=== PATIENT | male | born 1990 | race Caucasian/White ===

== ENCOUNTER 2018-10-15 21:40 | Emergency (ER) | payer SELFPAY ==
--- NOTE | 2018-10-15 21:55 | EDM.PDOC ---
ED HPI GENERAL MEDICAL PROBLEM - General Chief Complaint: ENT Problem Stated Complaint: BLOODY NOSE Time Seen by Provider: 10/15/18 21:55 Source of Information: Reports: Patient - History of Present Illness INITIAL COMMENTS - FREE TEXT/NARRATIVE: HISTORY AND PHYSICAL: History of present illness: [Patient presents with epistaxis left there off and on since yesterday has been bleeding over the last hour we did try the nose clamp as well as ice on the back of neck for 30 minutes no resolution Eyes nasal balloon device without complication or complaint 4 mL for inflation-- leading resolved] Review of systems: As per history of present illness and below otherwise all systems reviewed and negative. Past medical history: As per history of present illness and as reviewed below otherwise noncontributory. Surgical history: As per history of present illness and as reviewed below otherwise noncontributory. Social history: No reported history of drug or alcohol abuse. Family history: As per history of present illness and as reviewed below otherwise noncontributory. Physical exam: HEENT: Atraumatic, normocephalic, pupils reactive, negative for conjunctival pallor or scleral icterus, mucous membranes moist, throat clear, neck supple, nontender, trachea midline. Lungs: Clear to auscultation, breath sounds equal bilaterally, chest nontender. Heart: S1S2, regular, negative for clicks, rubs, or JVD. Abdomen: Soft, nondistended, nontender. Negative for masses or hepatosplenomegaly. Negative for costovertebral tenderness. Pelvis: Stable nontender. Genitourinary: Deferred. Rectal: Deferred. Extremities: Atraumatic, negative for cords or calf pain. Neurovascular unremarkable. Neuro: Awake, alert, oriented. Cranial nerves II through XII unremarkable. Cerebellum unremarkable. Motor and sensory unremarkable throughout. Exam nonfocal. Diagnostics: [CBC ] Therapeutics: [Balloon device left there] Impression: [Epistaxis] Definitive disposition and diagnosis as appropriate pending reevaluation and review of above. - Related Data Allergies Allergy/AdvReac Type Severity Reaction Status Date / Time No Known Allergies Allergy Verified 10/15/18 22:10 Home Meds: Home Meds atorvaSTATin [Lipitor] 0 mg PO DAILY 10/15/18 [History] metFORMIN HCl [Metformin HCl] 1 tab PO BID 10/15/18 [History] ED ROS GENERAL - Review of Systems Review Of Systems: See Below ED EXAM, GENERAL - Physical Exam Exam: See Below Course - Vital Signs Last Recorded V/S: Last Vital Signs Temp 97 F 10/15/18 21:50 Pulse 126 H 10/15/18 21:50 Resp 18 10/15/18 21:50 BP 127/94 H 10/15/18 21:50 Pulse Ox 95 10/15/18 21:50 - Orders/Labs/Meds Labs: Laboratory Tests 10/15/18 Range/Units 22:53 WBC 7.60 (4.0-11.0) K/uL RBC 4.59 (4.50-5.90) M/uL Hgb 16.8 (13.0-17.0) g/dL Hct 49.1 (38.0-50.0) % MCV 107.0 H (80.0-98.0) fL MCH 36.6 H (27.0-32.0) pg MCHC 34.2 (31.0-37.0) g/dL RDW Std Deviation 50.9 (28.0-62.0) fl RDW Coeff of Nina 13 (11.0-15.0) % Plt Count 283 (150-400) K/uL MPV 10.90 (7.40-12.00) fL Add Manual Diff YES Neutrophils % (Manual) 62 (48.0-80.0) % Band Neutrophils % 4 % Lymphocytes % (Manual) 29 (16.0-40.0) % Monocytes % (Manual) 3 (0.0-15.0) % Eosinophils % (Manual) 2 (0.0-7.0) % Nucleated RBC % 0.0 /100WBC Absolute Seg Neuts 4.7 (1.4-5.7) Band Neutrophils # 0.3 Lymphocytes # (Manual) 2.2 (0.6-2.4) Monocytes # (Manual) 0.2 (0.0-0.8) Eosinophils # (Manual) 0.2 (0.0-0.7) Nucleated RBCs # 0 K/uL Departure - Departure Time of Disposition: 23:45 Disposition: Home, Self-Care 01 Condition: Good Clinical Impression: Epistaxis - Discharge Information Referrals: PCP,Unknown [Primary Care Provider] - Forms: ED Department Discharge Additional Instructions: Return if symptoms persist or worsen Return to ER in 24-48 hours for removal of balloon device The following information is given to patients seen in the emergency department who are being discharged to home. This information is to outline your options for follow-up care. We provide all patients seen in our emergency department with a follow-up referral. The need for follow-up, as well as the timing and circumstances, are variable depending upon the specifics of your emergency department visit. If you don't have a primary care physician on staff, we will provide you with a referral. We always advise you to contact your personal physician following an emergency department visit to inform them of the circumstance of the visit and for follow-up with them and/or the need for any referrals to a consulting specialist. The emergency department will also refer you to a specialist when appropriate. This referral assures that you have the opportunity for follow-up care with a specialist. All of these measure are taken in an effort to provide you with optimal care, which includes your follow-up. Under all circumstances we always encourage you to contact your private physician who remains a resource for coordinating your care. When calling for follow-up care, please make the office aware that this follow-up is from your recent emergency room visit. If for any reason you are refused follow-up, please contact the [facility] emergency department at and asked to speak to the emergency department charge nurse.
== END 2018-10-15 23:55 | disposition home or self-care (01) ==
LOC: MW.ED 21:40
DX: R04.0 Epistaxis (principal); Z79.84 Long term (current) use of oral hypoglycemic drugs
CPT/HCPCS: 30903; 36415; 85025; 99282; 99283